=== PATIENT | female | born 1985 | race Caucasian/White ===

== ENCOUNTER → 2018-08-01 | Outpatient (CLI) | payer OTHER ==
[~2018-08-01] MED LIST: ALBU90OI INH; AMOCLA500 PO; AMOX875 PO; AZIT250 PO; BENZ100A PO; CITA20; CYCL10 PO; DOCU100 PO; ERYT500 PO; FLUSAL2505 IH; HYDACE5 PO; HYDGUAL120 PO; IBUP800 PO; LEVSOD100 PO; NAPR500 PO; NORETHTP; Omeprazole20 M1; PENVK500 PO; POLY17UD PO; PRED20 PO; RXHYDACE PO; SERT50 PO; SULTRIDS PO
== END | disposition home or self-care (01) ==
LOC: LAB 09:00 → LAB SHORT 09:00
PROVIDERS: Nurse Practitioner
DX: Z01.419 Encounter for gynecological examination (general) (routine) without abnormal findings (principal)
CPT/HCPCS: G0145

== ENCOUNTER 2019-11-16 17:36 | Emergency (ER) | payer OTHER ==
[~2019-11-16] VITALS: Ht 170.2 cm; Wt 142.9 kg
[2019-11-16] MEDS ORDERED: DULO60 PO (18:42)
[2019-11-16] MEDS ORDERED: PREG50 (18:43)
[2019-11-16] MEDS ORDERED: MELATONIN5 M1 PO (18:43)
[2019-11-16] MEDS ORDERED: Norco 5-325 Ta1 EACH PO (21:41)
== END 2019-11-16 22:06 | disposition home or self-care (01) ==
LOC: ER 17:36
DX: S22.41XA Multiple fractures of ribs, right side, initial encounter for closed fracture (principal); S62.323A Displaced fracture of shaft of third metacarpal bone, left hand, initial encounter for closed fracture; S62.325A Displaced fracture of shaft of fourth metacarpal bone, left hand, initial encounter for closed fracture; J45.909 Unspecified asthma, uncomplicated; E03.9 Hypothyroidism, unspecified; F32.9 Major depressive disorder, single episode, unspecified; Z79.899 Other long term (current) drug therapy; X58.XXXA Exposure to other specified factors, initial encounter
CPT/HCPCS: 29125; 36415; 71046; 71260; 73130; 99284-25; A9270; Q9967

== ENCOUNTER → 2020-04-17 | Outpatient (CLI) | payer OTHER ==
[~2020-04-17] MED LIST changes: +DULO60 PO; +MELATONIN5 M1 PO; +Norco 5-325 Ta1 EACH PO; +PREG50
== END | disposition home or self-care (01) ==
LOC: LAB 17:57 → LAB SHORT 17:57
PROVIDERS: Nurse Practitioner
DX: Z01.419 Encounter for gynecological examination (general) (routine) without abnormal findings (principal)
CPT/HCPCS: G0145